=== PATIENT | female | born 1985 | race Two or more races ===

== ENCOUNTER 2024-07-29 09:38 | Emergency (ER) | payer MEDICARE, SELFPAY ==
[2024-07-29 09:44] VITALS: BP 130/83; PULSE 96; RESP 18; TEMP 36.4; O2SAT 96; BMI 38.5
--- NOTE | 2024-07-29 09:50 | PD.EDANKLE ---
Lower Extremity Injury RME/HPI General Chief Complaint: Ankle/Foot Injury Stated Complaint: LEFT INGROWN WOUND/SURGEY NOT HEALING WELL Time Seen by Provider: 07/29/24 09:45 Arrival date/time: 07/29/24 09:38 39-year-old female with no significant medical problems presents to the Emergency Department today for complaints of pain, infection to left great toe patient reports that 2 weeks ago she had an ingrown toenail repaired in [facility] by a mineralogy professor. Limitations: no limitations Related Data Previous Rx's ?Medication ?Instructions ?Recorded cephalexin 500 mg capsule 500 mg PO BID 7 days #14 caps 07/29/24 ibuprofen 600 mg tablet 600 mg PO Q6H #30 tabs 07/29/24 mupirocin 2 % topical ointment 1 applic topical TID 10 days #22 07/29/24 grams Allergies Allergy/AdvReac Type Severity Reaction Status Date / Time No Known Allergies Allergy Verified 07/29/24 09:41 Review of Systems Review of Systems Systems Reviewed: All systems reviewed, normal except as documented Constitutional Constitutional: Reports system reviewed and no additional complaints, except as documented, Denies fever(s) and Denies headache(s) Eyes Eyes: Reports system reviewed and no additional complaints, except as documented and Denies blurry vision ENT Ears, Nose, Mouth, and Throat: Reports system reviewed and no additional complaints, except as documented, Denies headache(s), Denies nasal congestion and Denies nasal discharge Cardiovascular Cardiovascular: Reports system reviewed and no additional complaints, except as documented, Denies chest pain and Denies dyspnea Respiratory Respiratory: Reports system reviewed and no additional complaints, except as documented, Denies chest congestion, Denies cough and Denies dyspnea Gastrointestinal Gastrointestinal: Reports system reviewed and no additional complaints, except as documented and Denies abdominal pain Integumentary/Breasts Skin/Breast: Reports system reviewed and no additional complaints, except as documented, Denies rash and Reports other (Left great toe infection ingrown toenail) Neurologic Neurologic: Reports system reviewed and no additional complaints, except as documented, Reports as per HPI and Denies headache(s) Past Medical History Social History SMOKING STATUS: Never smoker ED Exam General Limitations: Present no limitations General appearance: Present alert and in no apparent distress Head Head exam: Present atraumatic Eye Eye exam: Present normal appearance, PERRL and EOMI ENT ENT exam: Present normal exam, normal oropharynx and mucous membranes moist Neck Neck exam: Present normal inspection, full ROM and trachea midline Chest Chest inspection: Present normal inspection and symmetric chest wall rise Respiratory Respiratory exam: Present normal lung sounds bilaterally Cardiovascular Cardiovascular exam: Present regular rate, normal rhythm and normal heart sounds Abdominal Exam Abdominal exam: Present soft and normal bowel sounds Extremities Exam Extremities exam: Present normal inspection and full ROM Back Exam Back exam: Present normal inspection and full ROM Neurological Exam Neurological exam: Present alert, oriented X3 and CN II-XII intact Psychiatric Psychiatric exam: Present normal affect and normal mood Skin Skin exam: Present warm, dry and other (Left great toe infection ingrown toenail mild erythema) Course Quality Measures none Vital Signs Vital signs: Vital Signs Temperature 97.5 F 07/29/24 09:44 Pulse Rate 96 07/29/24 09:44 Respiratory Rate 18 07/29/24 09:44 Blood Pressure 130/83 07/29/24 09:44 Pulse Oximetry (%) 96 07/29/24 09:44 Oxygen Delivery Method Room Air 07/29/24 09:44 O2 saturation 96% on room air within normal limits Extremity Injury, Lower MDM Narrative MDM Narrative:: 39-year-old female with no significant medical problems presents to the Emergency Department today for complaints of pain, infection to left great toe patient reports that 2 weeks ago she had an ingrown toenail repaired in [facility] by a mineralogy professor. On exam patient has what appears to be a very mild ingrown toenail patient be given a course of antibiotics Explained to the patient should symptoms persist or worsen he is to return for reevaluation Patient data External records reviewed:: [facility] previous records Clinical information provided by:: patient Social determinants that could affect healthcare access:: none Patient has the following chronic illnesses:: Ingrown toenail How is presenting disease/condition affected by chronic disease/condition?: caused by Evaluation data The following diagnostics were reviewed and interpreted by me:: other (specify) Lab and/or radiology exams considered but not ordered:: Consider not ordered N/A Interpretation Summary: N/A Medications / Prescriptions Medications or Prescriptions considered but not ordered:: Given Medication administrations:: Given Consultations Consultation(s) initiated? (list below): No Diagnosis Extremity Injury, Lower Differential Diagnosis: other (Ingrown toenail, cellulitis, abscess) Most likely diagnosis given after review of the tests above:: Ingrown toenail Admission Indicated Admission indicated?: not indicated Admission Request Was there a request for admission?: No Disposition Plan Disposition Plan: Discharge Discharge Attestation Discharge Attestation: The patient and all family members were given an opportunity to ask questions and understood the discharge instructions. Discharge instructions specifically effects, indications for sooner follow up or return to the emergency department, and the expected course of current diagnosis. Patient condition: Stable Discharge Plan Plan Patient Disposition: HOME (Self Care) Disposition Comment: Stable Prescriptions/Referrals Prescriptions/Med Rec: New cephalexin 500 mg capsule 500 mg PO BID 7 Days Qty: 14 0RF mupirocin 2 % ointment 1 applic topical TID 10 Days Qty: 22 0RF ibuprofen 600 mg tablet 600 mg PO Q6H Qty: 30 0RF Problem List Clinical Impression: Ingrowing toenail of left foot Patient/Caregiver Discharge Instructions Education Materials: ED Toenail Ingrown Infec Abx Onl Additional Instructions: Please follow up with your primary care doctor in the next 24-48hrs for any worsening symptoms return here immediately Print Language: Macedonian Stand Alone Forms: Ashley Award Info., Patient Portal Info Letter PA/PRISON CLASSIFICATION COUNSELOR Supervising Physician PA/PRISON CLASSIFICATION COUNSELOR Supervising Physician: Dr moraes
== END 2024-07-29 10:14 | disposition home or self-care (01) ==
LOC: SERX 10:06
PROVIDERS: Emergency Provider Emergency Medicine
DX: L60.0 Ingrowing nail (principal)
CPT/HCPCS: 99281

== ENCOUNTER 2024-10-09 21:40 | Emergency (ER) | payer MEDICARE, SELFPAY ==
[2024-10-09 21:40] VITALS: BMI 39.0
[2024-10-09 21:59] VITALS: BP 115/76; PULSE 83; RESP 20; TEMP 36.8; O2SAT 98
--- NOTE | 2024-10-09 21:59 | EKG_ITS ---
[facility] Test Date: 2024-10-09 Pat Name: LEXUS SEGURA Department: Room: - Gender: Female Afterschool: : 1985 Requested By: Beny Mast Order Number: [id number] Reading MD: Beny Mast Measurements Intervals [place] Rate: 85 P: 37 KS: 127 QRS: 16 QRSD: 69 T: 32 QT: 362 QTc: 431 Interpretive Statements SINUS RHYTHM No previous ECG available for comparison /store/S0/[id number]/[id number].pdf
--- NOTE | 2024-10-09 21:59 | XR_ITS ---
Examination: PA chest single view TECHNIQUE: Upright PA chest single view Date and time: October 092024 at 10:17 PM INDICATIONS: Chest pain shortness of breath today. FINDINGS: Normal heart size. Lungs are clear. The osseous structures are intact IMPRESSION: No active disease.
[2024-10-09 22:54] LABS: Basophils # (Auto) 0.1 Thou/mm3 (0.0-0.2); Basophils % (Auto) 0 % (0-2.5); Eosinophils # (Auto) 0.0 Thou/mm3 (0.0-0.5); Eosinophils % (Auto) 0 % (0-10); Hematocrit 42.6 % (36.0-46.0); Hemoglobin 14.8 g/dL (12.0-16.0); Immature Granulocytes Auto 0.16 Thou/mm3 (0.00-0.00); Lymphocytes # (Auto) 3.7 Thou/mm3 (1.0-4.8); Lymphocytes % (Auto) 21 % (10-50); Mean Corpuscular HGB Conc 34.7 g/dl (31.0-37.0); Mean Corpuscular Hemoglobin 29.3 pg (25.0-35.0); Mean Corpuscular Volume 84 fL (80-100); Monocytes # (Auto) 1.1 Thou/mm3 (0.0-0.8); Monocytes % (Auto) 6 % (0-12); Neutrophils # (Auto) 12.9 Thou/mm3 (1.8-7.7); Neutrophils % (Auto) 72 % (37-80); Nucleated Red Blood Cell # 0.00 Thou/mm3 (0.00-0.00); Nucleated Red Blood Cell % 0 /100 WBC (0); Platelet Count 335 Thou/mm3 (140-440); RDW Standard Deviation 38.8 fL (36.4-46.3); Red Blood Count 5.05 Miln/mm3 (4.00-5.20); White Blood Count 17.9 Thou/mm3 (3.6-11.0)
[2024-10-09 22:57] LABS: Collection Type, Urine Clean Catch
[2024-10-09 23:01] LABS: Bilirubin,Urine Negative (Negative); Blood,Urine Negative (Negative); Clarity,Urine Clear (Clear/Hazy); Color,Urine Yellow (Lt Yel-Yel); Glucose, Urine Negative (Negative); Ketones,Urine Negative (Negative); Leukocyte Esterase,Urine Positive (Negative); Nitrite,Urine Negative (Negative); PH,Urine 6.5 (5.0-7.0); Protein,Urine Negative (Neg - Trace); RBC,Urine 4 /hpf (0-3); Specific Gravity,Urine 1.024 (1.001-1.035); Squamous Epithelial Cell,Urine 1 /hpf (0-5); Urobilinogen,Urine Negative mg/dL (0.0-1.0); WBC,Urine 21 /hpf (0-5)
[2024-10-09 23:03] LABS: HCG Qualitative,Urine Negative
[2024-10-09 23:13] LABS: B-Type Natriuretic Peptide < 20 pg/mL (0-100)
[2024-10-09 23:44] LABS: Alanine Aminotransferase 40 U/L (10-49); Albumin, Serum 4.4 gm/dL (3.5-5.0); Albumin/Globulin Ratio 1.5 (1.2-2.2); Alkaline Phosphatase 135 U/L (46-116); Anion Gap 14 (7-16); Aspartate Amino Transferase 36 U/L (0-34); BUN/Creatinine Ratio 8 Ratio (12-20); Bilirubin,Total 0.3 mg/dL (0.3-1.2); Blood Urea Nitrogen 7 mg/dL (9-23); Calcium 9.4 mg/dL (8.3-10.6); Calcium (Corrected) 9.4 mg/dL (8.5-10.1); Carbon Dioxide 25.3 mMol/L (20.0-31.0); Chloride 103 mMol/L (98-107); Creatinine (Component) 0.9 mg/dL (0.6-1.3); Estimated Creatinine Clearance 85.9 mL/min (>60); Globulin 3.0 gm/dL (2.3-3.5); Glucose 129 mg/dL (74-106); Osmolality,Calculated 283 (275-295); Potassium 3.8 mMol/L (3.4-5.1); Sodium 142 mMol/L (136-145); Total Protein 7.4 gm/dL (5.7-8.2); Troponin I < 0.002 ng/mL (0.0-0.045); eGFR > 60 See Note
[2024-10-09 23:45] LABS: Lactate (Lactic Acid) 2.7 mMol/L (0.4-2.0)
[2024-10-10 00:13] LABS: Lipase 49 U/L (12-53)
--- NOTE | 2024-10-10 00:21 | XR_ITS ---
Examination: CT abdomen and pelvis without contrast. Coronal 3-D reconstructions. Sagittal 2-D reconstructions. Date and time of exam:October 10, 2024, 0045 hours. INDICATIONS: Abdominal pain today CTDI: vol (mGy): 11. DLP: (mGycm): 576 Technique: Axial images of the abdomen have been obtained, 3 mm slice thickness Intravenous contrast material has not been administered. Low dose protocols were performed. One or more of the following dose reduction techniques were used; automated exposure control, adjustment of the mA and/or KV according to patient size, use of iterative reconstruction technique. Findings: Hepatomegaly with fatty infiltration throughout the liver, liver mildly irregular in contour No gallstones No pancreatic mass. No renal or ureteral calculi, no hydronephrosis Normal appendix No bowel obstruction No diverticulitis No pelvic mass Urinary bladder is intact IMPRESSION: Fatty infiltration throughout the liver No acute process in the abdomen or pelvis
--- NOTE | 2024-10-10 01:19 | XR_ITS ---
Examination: PA chest single view TECHNIQUE: Upright PA chest single view Date and time: October 10, 2024, 0141 hours Comparison October 09, 2024. INDICATIONS: Chest pain sepsis today. FINDINGS: Reduced inspiratory effort Normal heart size The osseous structures are intact IMPRESSION: No active disease.
--- NOTE | 2024-10-10 01:35 | PD.EDABDPN ---
ED Abdominal Pain RME/HPI General Chief Complaint: Chest Pain Stated complaint: CHEST PAIN Time seen by provider: 10/09/24 21:44 Arrival date/time: 10/09/24 21:40 This is a case of 39-year-old female with no medical history initially came in with chest pain midsternal in character radiating to the abdominal area burning cramping in character associated with nausea vomiting denies any constipation diarrhea or blood in stool denies any fever or chills denies any urinary symptoms worsening of the symptoms this patient decided to sought consult here in the emergency room Source: patient and family Limitations: no limitations Related Data Previous Rx's ?Medication ?Instructions ?Recorded ibuprofen 600 mg tablet 600 mg PO Q6H #30 tabs 07/29/24 cephalexin 500 mg tablet 500 mg PO QID 10 days #40 tabs 10/10/24 famotidine 20 mg tablet 20 mg PO BID #60 tabs 10/10/24 omeprazole 20 mg capsule,delayed 20 mg PO QDAY #30 caps 10/10/24 release ondansetron 4 mg disintegrating 4 mg PO Q8H PRN nausea and 10/10/24 tablet vomiting #20 tabs Allergies Allergy/AdvReac Type Severity Reaction Status Date / Time No Known Allergies Allergy Verified 07/29/24 09:41 Review of Systems Review of Systems Systems Reviewed: All systems reviewed, normal except as documented Constitutional Constitutional: Reports system reviewed and no additional complaints, except as documented, Reports as per HPI, Denies anorexia, Denies chills, Denies fever(s) and Denies night sweats ENT Ears, Nose, Mouth, and Throat: Reports system reviewed and no additional complaints, except as documented, Reports as per HPI, Denies dysphagia and Denies odynophagia Cardiovascular Cardiovascular: Reports system reviewed and no additional complaints, except as documented, Reports as per HPI, Denies acrocyanosis, Reports chest pain, Denies chest pain at rest, Denies chest pain with activity, Denies claudication, Denies diaphoresis, Denies dyspnea, Denies dyspnea on exertion, Denies edema, Denies irregular heart rhythm, Denies leg edema, Denies lightheadedness, Denies rapid heart rate, Denies slow heart rate and Denies syncope Respiratory Respiratory: Reports system reviewed and no additional complaints, except as documented, Reports as per HPI, Denies cough, Denies dyspnea and Denies dyspnea on exertion Gastrointestinal Gastrointestinal: Reports system reviewed and no additional complaints, except as documented, Reports as per HPI, Reports abdominal pain, Denies belching, Denies bloating, Denies change in bowel habits, Denies change in stool character, Denies coffee ground emesis, Denies constipation, Denies cramping, Denies diarrhea, Denies dyspepsia, Denies dysphagia, Denies early satiety, Denies excessive flatus, Denies fecal incontinence, Denies heartburn, Denies hematemesis, Denies hematochezia, Denies loose stools, Denies melena, Reports nausea, Denies odynophagia, Denies tenesmus and Reports vomiting Musculoskeletal Musculoskeletal: Reports system reviewed and no additional complaints, except as documented and Reports as per HPI Neurologic Neurologic: Reports system reviewed and no additional complaints, except as documented, Reports as per HPI and Denies syncope Past Medical History Past Medical History CARDIAC: Negative Hypercholesterolemia, Congestive Heart Failure or Hypertension RESPIRATORY: Negative Chronic Obstructive Pulmonary Disease (COPD) GENITOURINARY: Negative Renal Disease ENDOCRINE: Negative Diabetes Mellitus Type 1 or Diabetes Mellitus Type 2 PSYCHO/SOCIAL: Positive Schizophrenia, Depression and Anxiety Social History SMOKING STATUS: Never smoker ED Exam General Limitations: Present no limitations General appearance: Present alert and in no apparent distress; Absent appears intoxicated, anxious, lethargic, obtunded, in distress, obese or cachectic Head Head exam: Present atraumatic, normocephalic and normal inspection Eye Eye exam: Present normal appearance, PERRL and EOMI ENT ENT exam: Present normal exam, normal oropharynx, mucous membranes moist and other (Normal HEENT exam) Neck Neck exam: Present normal inspection, full ROM and trachea midline; Absent tenderness, meningismus, lymphadenopathy or thyromegaly Chest Chest inspection: Present normal inspection and symmetric chest wall rise; Absent tenderness or rash Respiratory Respiratory exam: Present normal lung sounds bilaterally; Absent respiratory distress, wheezes, stridor, accessory muscle use or prolonged expiratory phase Cardiovascular Cardiovascular exam: Present regular rate, normal rhythm and normal heart sounds; Absent bradycardia, tachycardia, irregular rhythm, systolic murmur or diastolic murmur Abdominal Exam Abdominal exam: Present soft, tenderness (Mild tenderness epigastric area) and normal bowel sounds; Absent distention, guarding, rebound, rigidity, diminished bowel sounds, hyperactive bowel sounds, hypoactive bowel sounds, organomegaly, trauma, incision, psoas sign, obturator sign, heel tap sign, Kevin's sign, Rovsing's sign, tenderness at [place]'s Point or ascites (Mild tenderness epigastric area no guarding no rebound no rigidity negative psoas negative straight or negative Rovsing's negative [place]'s no Kevin sign negative CVA tenderness) Extremities Exam Extremities exam: Present normal inspection and full ROM Back Exam Back exam: Present normal inspection and full ROM Neurological Exam Neurological exam: Present alert, oriented X3, CN II-XII intact, normal gait and reflexes normal; Absent motor sensory deficit Psychiatric Psychiatric exam: Present normal affect and normal mood Skin Skin exam: Present warm, dry, intact and normal color Course Quality Measures none Orders Category Date Time Status Bedside Blood Glucose NOW Care 10/10/24 01:19 Active Bookbinder Chief Q4H START 00 Care 10/10/24 01:19 Active EKG (ED ONLY) *Do not use* NOW Care 10/09/24 21:59 Completed Insert IV NOW Care 10/10/24 01:19 Active Strict Intake and Output Routine Care 10/10/24 01:[address] abdomen pelvis wo con Stat Exams 10/10/24 00:21 Taken EKG (ED Only) Stat Exams 10/09/24 21:59 Draft XR chest 1V SEPSIS PROTOCOL Stat Exams 10/10/24 01:19 Taken XR chest 1V portable Stat Exams 10/09/24 21:59 Completed BNP [B-Type Natriuretic Peptide] Stat Lab 10/09/24 22:22 Completed Blood Culture (Lab) Stat Lab 10/10/24 01:28 Received CBC Stat Lab 10/09/24 22:22 Completed Comprehensive Metabolic Panel Stat Lab 10/09/24 22:22 Completed HCG Qualitative,Urine Stat Lab 10/09/24 22:43 Completed Lactic Acid [Lactate (Lactic Acid)] Stat Lab 10/09/24 23:36 Completed Lactic Acid [Lactate (Lactic Acid)] Stat Lab 10/10/24 02:38 Completed Lipase Stat Lab 10/09/24 22:22 Completed Partial Thromboplastin Time Stat Lab 10/10/24 01:30 Completed Procalcitonin Stat Lab 10/10/24 01:30 Completed Prothrombin Time with INR Stat Lab 10/10/24 01:30 Completed Troponin I Stat Lab 10/09/24 22:22 Completed Urinalysis Stat Lab 10/09/24 22:43 Completed Sodium Chloride 0.9% 1000 ml [Ns] 1,000 ml Med 10/10/24 01:24 Discontinued IV 999 mls/hr cefTRIAXone [Rocephin] 2 gm Med 10/10/24 01:25 Discontinued SODIUM CHLORIDE 0.9% (Popper) [Ns 0.9% (P)] 50 ml IV X1 EKG (RT) Stat RT 10/10/24 01:19 Ordered Oxygen Delivery NOW RT 10/10/24 01:19 Active Vital Signs Vital signs: Vital Signs Temperature 98.3 F 10/09/24 21:59 Pulse Rate 83 10/09/24 21:59 Respiratory Rate 20 10/09/24 21:59 Blood Pressure 115/76 10/09/24 21:59 Pulse Oximetry (%) 98 10/09/24 21:59 Oxygen Delivery Method Room Air 10/09/24 21:59 Patient is afebrile not tachycardic not tachypneic BP stable not hypoxic oxygen saturation in room air Abdominal Pain MDM MDM Narrative MDM Narrative:: This is a case of 39-year-old female with no medical history initially came in with chest pain midsternal in character radiating to the abdominal area burning cramping in character associated with nausea vomiting denies any constipation diarrhea or blood in stool denies any fever or chills denies any urinary symptoms worsening of the symptoms this patient decided to sought consult here in the emergency room physical examination patient is awake alert oriented not in distress nontoxic looking negative for meningeal sign HEENT exam is normal lungs are is clear no crackles no rales no retraction no stridor heart normal rate regular rhythm no murmur abdominal exam mild tenderness on the epigastric area no guarding no rebound no rigidity negative psoas negative straight or negative Rovsing's negative [place]'s negative Kevin sign negative CVA tenderness soft normal active bowel sounds rest of the physical examination and neurological exam is normal and unremarkable excellent skin turgor blood test showed a WBC of 17.9 thus lactic acid was ordered and noted to be 2.7 aseptic workup was performed blood culture was ordered chest x-ray showed normal EKG showed 85 sinus rhythm with no anemia platelet is normal no electrolyte imbalance kidney and liver function is normal no electrolyte imbalance lipase is normal urinalysis showed positive WBC and CT scan showed a fatty liver and hepatomegaly I discussed with Dr. browne patient condition history and physical examination relayed the result of blood test and CT scan I was instructed to repeat the lactic acid after the 2 bolus of normal saline and if it is normal discharge patient possibly the lactic acid is due to dehydration patient was given a bolus of normal saline and Rocephin 2 g repeat lactic acid showed 1.5 and it is normal procalcitonin is also normal at this point the patient is not sepsis lactic acid elevation is due to dehydration patient was discharge still benign no guarding no rebound no rigidity possibly also due to gastritis this patient was discharged with omeprazole and famotidine patient was advised to follow-up with PCP in 2 days for evaluation and to be referred to assurance senior for chest pain for possible echocardiogram stress test and Holter monitor she needs to also to see a applications administrator for fatty liver and gastritis modified diet was advised patient was discharged also with cephalexin for urinary tract infection patient understood very well the discharge instruction Patient was discharged with comfortable condition walking with stable gait. Patient verbalized no further complains explained diagnosis and answered patient question. Patient is comfortable with the proposed management plan including the need to follow up with his/her primary care physician and any specialist if applicable Discussed patient for any urgent condition or worsening sx, He/She needed to go to emergency room immediately or call 911. Patient acknowledge the responsibility to follow up as instructed and to monitor her/his symptoms. For any persistence of the symptoms for more than 3-5 days return precaution advised. Discussed the result of the test and was given printed discharge instruction Patient data External records reviewed:: [facility] previous records Clinical information provided by:: patient Social determinants that could affect healthcare access:: none Patient has the following chronic illnesses:: None How is presenting disease/condition affected by chronic disease/condition?: no chronic disease Evaluation data The following diagnostics were reviewed and interpreted by me:: lab results and radiology exam(s) Lab and/or radiology exams considered but not ordered:: Reviewed Interpretation Summary: Reviewed Medications / Prescriptions Medications or Prescriptions considered but not ordered:: Given Medication administrations:: Medication Administration History Discontinued Medications Sodium Chloride (Ns) 1,000 mls @ 999 mls/hr IV .Q1H1M ONE Stop: 10/10/24 02:24 Last Infusion: 10/10/24 03:22 Dose: Infused Documented By: Admin: 10/10/24 02:08 Dose: 999 mls/hr Documented By: KARINA Ceftriaxone Sodium 2 gm/ (Sodium Chloride) 50 mls @ 100 mls/hr IV X1 ONE Stop: 10/10/24 01:54 Last Infusion: 10/10/24 02:43 Dose: Infused Documented By: Admin: 10/10/24 02:09 Dose: 100 mls/hr Documented By: KARINA Given Consultations Consultation(s) initiated? (list below): Yes Consultation #1 (Physician, Specialty, Details): dr browne discharge patient condition history and physical examination relayed the result of blood test and CT scan result for him it is not sepsis I was instructed that if the lactic acid second is normal discharge patient and possibly due to dehydration Time: 03:38 Diagnosis Differential diagnosis abdominal pain: abdominal pain, acute appendicitis, calculus of kidney, diverticulitis, endometriosis, gastroenteritis and pancreatitis Most likely diagnosis given after review of the tests above:: Urinary tract infection gastritis Admission Indicated Admission indicated?: not indicated Explain why admission is indicated or not indicated:: Not indicated Admission Request Was there a request for admission?: No Admission Attestation Admission request attestation: Not indicated Disposition Plan Disposition Plan: Discharge Discharge Attestation Discharge Attestation: The patient and all family members were given an opportunity to ask questions and understood the discharge instructions. Discharge instructions specifically effects, indications for sooner follow up or return to the emergency department, and the expected course of current diagnosis. Patient condition: Stable Discharge Plan Plan Patient Disposition: HOME (Self Care) Patient condition on transfer: Stable Prescriptions/Referrals Prescriptions/Med Rec: New omeprazole 20 mg capsule,delayed release(DR/EC) 20 mg PO QDAY Qty: 30 0RF famotidine 20 mg tablet 20 mg PO BID Qty: 60 0RF ondansetron 4 mg tablet,disintegrating 4 mg PO Q8H PRN (Reason: nausea and vomiting) Qty: 20 0RF cephalexin 500 mg tablet 500 mg PO QID 10 Days Qty: 40 0RF No Action ibuprofen 600 mg tablet 600 mg PO Q6H Qty: 30 0RF Referrals: No Primary/Family,Physician [Primary Care Provider] - In 1 week Problem List Clinical Impression: Chest pain of unknown etiology, Abdominal pain, Urinary tract infection, Fatty liver, Dehydration, mild, Gastritis Patient/Caregiver Discharge Instructions Education Materials: Abdominal Pain, Nonalcoholic Fatty Liver ..., Urinary Tract Infections in Women, ED Chest Pain, Uncertain Cause, ED Dehydration (Adult), ED Gastritis (Adult) Additional Instructions: Follow-up with your primary care physician in 2 days for reevaluation and to be referred to assurance senior for further evaluation and treatment of chest pain for possible echocardiogram stress test and Holter monitor and to be referred to applications administrator for further evaluation of fatty liver and possible gastritis worsening symptoms or any emergent concern or recurrence of the symptoms return to the emergency room immediately or call 911 avoid skipping of meals avoid fat fried high cholesterol food avoid alcohol as coffee Tylenol or soda avoid spicy food take your medication and finish the course of antibiotic Pedialyte Gatorade for every bouts of vomiting keep hydrated Print Language: Bruneian Stand Alone Forms: Ashley Award Info., Patient Portal Info Letter PA/FINISHING MANAGER Supervising Physician PA/ANAHI Supervising Physician: Dr Logan
[2024-10-10 01:55] LABS: INR 1.0 (0.9-1.3); Partial Thromboplastin Time 27.9 Seconds (22.0-36.0); Prothrombin Time 11.3 Seconds (9.0-12.2)
[2024-10-10 02:06] LABS: Procalcitonin 0.04 ng/ml (0.0-0.49)
[2024-10-10] MEDS: SODIUM CHLORIDE 0.9% 1000 ML 1,000 ML 999 ML IV (02:08)
[2024-10-10] MEDS: cefTRIAXone 2 GM in SODIUM CHLORIDE 0.9% (Popper) 50 ML IV (02:09)
--- NOTE | 2024-10-10 02:12 | PRELIM_ITS ---
CT scan of the abdomen and pelvis without intravenous contrast (axial sections with sagittal and coronal reformats) October 10, 2024 at 0045 hours Clinical History: Abdominal pain Comparison: None. Findings: The lung bases are clear. The gallbladder, pancreas, spleen, kidneys and adrenals are unremarkable on this noncontrast study. Hepatomegaly associated with liver steatosis, suspicious for steatohepatitis. No evidence of bowel obstruction. The appendix is within normal limits. There is no mesenteric or retroperitoneal adenopathy. The urinary bladder is unremarkable. The uterus and ovaries are within normal limits. There is no free fluid or free air. The osseous structures are unremarkable. Impression: No evidence of kidney or ureteral stones. Hepatomegaly associated with liver steatosis, suspicious for steatohepatitis. Report Electronically Signed By: Nolberto Mortensen 10/10/2024 2:11:32 AM [EST]
[2024-10-10 02:17] VITALS: BP 115/89; PULSE 95; RESP 16; TEMP 37.1; O2SAT 95
[2024-10-10 02:44] LABS: Reflex Lactate? Y
[2024-10-10 02:45] LABS: Lactate (Lactic Acid) 1.5 mMol/L (0.4-2.0)
[2024-10-10 04:35] VITALS: BP 128/79; PULSE 81; RESP 16; TEMP 36.8; O2SAT 98
== END 2024-10-10 04:36 | disposition home or self-care (01) ==
PROVIDERS: Nurse Practitioner Family; Emergency Provider Emergency Medicine
DX: K29.70 Gastritis, unspecified, without bleeding (principal); E86.0 Dehydration; K76.0 Fatty (change of) liver, not elsewhere classified; N39.0 Urinary tract infection, site not specified; R07.9 Chest pain, unspecified; R06.02 Shortness of breath
CPT/HCPCS: 36415; 71045; 74176; 80053; 81001; 81025; 83605; 83690; 83880; 84145; 84484; 85025; 85610; 85730; 87040; 93005; 96361; 96365; 99284; J0696; J7030; J7050